=== PATIENT | female | born 1955 | race Caucasian/White ===

== ENCOUNTER 2018-02-15 12:17 | Emergency (ER) | payer OTHER ==
[~2018-02-15] VITALS: Ht 157.5 cm; Wt 127.0 kg
[2018-02-15] MEDS ORDERED: LORAZEPAM 0.5 MG TABLET PO ONE (12:30)
[2018-02-15] MEDS ORDERED: LORAZEPAM 0.5 MG TABLET ONE (12:44)
[2018-02-15 12:55] LABS: BASOPHILS % (AUTO) 0.2 % (0.0-2.0); EOSINOPHILS % (AUTO) 0.2 % (0.0-7.0); HEMATOCRIT 41.4 % (31.2-41.9); LYMPHOCYTES # (AUTO) 0.2 K/uL (20.0-40.0); LYMPHOCYTES % (AUTO) 2.4 % (20.5-51.5); MEAN CORPUSCULAR HGB CONC 34 g/dL (32.3-35.6); MEAN CORPUSCULAR VOLUME 85.8 fL (75.5-95.3); MONOCYTES # (AUTO) 0.4 K/uL (2.0-10.0); MONOCYTES % (AUTO) 5.2 % (0.0-11.0); NEUTROPHILS # (AUTO) 7.6 K/uL (1.8-8.9); PLATELET COUNT (AUTO) 184 K/uL (179-408); RED BLOOD CELL COUNT(AUTO) 4.83 MIL/uL (3.63-4.92); WHITE BLOOD COUNT (AUTO) 8.3 K/uL (3.8-11.8)
[2018-02-15 13:04] LABS: CREATININE 1.5 mg/dL (0.6-1.3); POTASSIUM 3.8 mmol/L (3.5-5.1)
[2018-02-15] MEDS ORDERED: POTA10TA21 PO (13:06)
[2018-02-15] MEDS ORDERED: BUSP10TA3 PO (13:06)
[2018-02-15] MEDS ORDERED: INSU100V28 SUBCUT (13:06)
[2018-02-15] MEDS ORDERED: ENAL20TA PO (13:06)
[2018-02-15] MEDS ORDERED: ATOR10TA PO (13:06)
[2018-02-15] MEDS ORDERED: INSU100I26 SQ (13:06)
[2018-02-15] MEDS ORDERED: GABA800T2 PO (13:06)
[2018-02-15 13:09] LABS: BILIRUBIN,DIRECT 0.1 mg/dL (0.0-0.2); BILIRUBIN,TOTAL 0.5 mg/dL (0.2-1.0); TOTAL PROTEIN, SERUM 7.1 g/dL (6.4-8.2)
[2018-02-15] MEDS ORDERED: TURMERIC PO (13:10)
--- NOTE | 2018-02-15 13:28 | NUR ---
Patient discharged to home in stable conditon. Written and verbal after care instructions given. Patient verbalizes understanding of instructions. pt walks in steady gait. pt with
[2018-02-15 13:29] VITALS: BP 151/59
== END 2018-02-15 13:30 | disposition home or self-care (01) ==
LOC: ER 12:17
DX: F41.9 Anxiety disorder, unspecified (principal); E11.9 Type 2 diabetes mellitus without complications; J45.909 Unspecified asthma, uncomplicated; Z88.2 Allergy status to sulfonamides; Z88.5 Allergy status to narcotic agent; Z79.4 Long term (current) use of insulin; Z79.899 Other long term (current) drug therapy
CPT/HCPCS: 36415; 71045; 80048; 80076; 84484; 85025; 93005; 99285; A4663; 70030-TC